=== PATIENT | male | born 2000 | race American Indian/Alaskan Native ===

== ENCOUNTER 2022-09-28 15:51 | Emergency (ER) | payer OTHER ==
[~2022-09-28] VITALS: Ht 185.4 cm; Wt 73.6 kg
[~2022-09-28 15:51] MED LIST: NAPROSYN500 MG PO
[2022-09-28 16:05] VITALS: TEMP 98.3
[2022-09-28] MEDS ORDERED: AMOXICILLIN 8751 TAB PO (18:27)
[2022-09-28 18:35] VITALS: BP 130/74; PULSE 70
== END 2022-09-28 18:35 | disposition home or self-care (01) ==
LOC: COL.ER 15:51
DX: J01.90 Acute sinusitis, unspecified (principal); Z28.310 Unvaccinated for COVID-19